=== PATIENT | male | born 2000 | race Two or more races ===

== ENCOUNTER → 2023-06-08 | Emergency (ER) | payer OTHER ==
[~2023-06-08] VITALS: Ht 180.3 cm; Wt 104.3 kg
[~2023-06-08] MED LIST: HEMLIBRA30 MG/1 ML SQ
[2023-06-08 17:40] LABS: HEMATOCRIT 44.4 % (39.0-48.0); HEMOGLOBIN 15.7 g/dL (13-16.00); MEAN CELL VOLUME 90.9 fL (80.0-100.00); MEAN CORPUSCULAR HEMOGLOBIN 32.1 pg (27.00-32.0); MEAN CORPUSCULAR HGB CONC 35.4 g/dl (32.0-36.0); PLATELET COUNT 275 K/uL (150-450); RED BLOOD COUNT 4.89 M/uL (4.00-6.00); RED CELL DISTRIBUTION WIDTH 12.9 % (11.5-14.5)
[2023-06-08 17:57] LABS: INR 1.09; PARTIAL THROMBOPLASTIN TIME 25.4 SECONDS (22.0-34.0); PROTHROMBIN TIME 11.4 SECONDS (9.0-11.5)
== END | disposition home or self-care (01) ==
LOC: ER 16:20
PROVIDERS: General Practice
DX: D66 Hereditary factor VIII deficiency (principal); M25.521 Pain in right elbow; Z88.6 Allergy status to analgesic agent